=== PATIENT | female | born 1955 | race Caucasian/White ===

== ENCOUNTER → 2024-10-27 13:37 | Outpatient (CLI) | payer MEDICARE, MEDICAID, SELFPAY ==
--- NOTE | 2024-10-27 13:41 | DI.US.S_ITS ---
PROCEDURE: US VENOUS INSUFFICIENCY BILAT INDICATIONS: venous statsis ulcer TECHNIQUE: Real time scanning was performed of the lower extremity venous system, with imaging documentation, as well as Color and pulse Doppler interrogation. COMPARISON: None. FINDINGS: RIGHT LOWER EXTREMITY: The deep veins are normally compressible, and free of intraluminal thrombus. Color and pulse Doppler demonstrate normal intravascular flow. Common femoral vein demonstrates reflux. Greater saphenous vein (GSV): Normally 4 mm or less in diameter, with any reflux less than 0.5 seconds. Saphenofemoral junction (SFJ): 12 mm. Reflux at 2.5 seconds. Proximal GSV: 5 mm. Reflux at 0.5 seconds. Mid GSV: 6 mm. Reflux at 1.9 seconds. Distal GSV: 6 mm. Reflux at 1.9 seconds. Calf GSV: 5 mm, and reflux at 1.9 seconds. Anterior accessory GSV (AAGSV): Anatomic variant not present across anterior thigh. Small saphenous vein (SSV): Posterior calf, draining into popliteal vein. Posterior calf: 4 mm. No reflux. Vein of Giacomini (posterior thigh connection between GSV and SSV): Anatomic variant not seen. LEFT LOWER EXTREMITY: The deep veins are normally compressible, and free of intraluminal thrombus. Color and pulse Doppler demonstrate normal intravascular flow. Reflux weight in the common femoral vein. Greater saphenous vein (GSV): Normally 4 mm or less in diameter, with any reflux less than 0.5 seconds. Saphenofemoral junction (SFJ): 11 mm. Reflux present at 2.3 seconds. Proximal GSV: 8 mm. No reflux. Mid GSV: 3 mm. No reflux. Distal GSV: 4 mm. No reflux. Calf GSV: 4 mm. No reflux. Anterior accessory GSV (AAGSV): Reflux in a proximal accessory vein at 1.1 second, 7 millimeter in diameter. Small saphenous vein (SSV): Posterior calf, draining into popliteal vein. Posterior calf: 3 mm. No reflux. Vein of Giacomini (posterior thigh connection between GSV and SSV): Anatomic variant not seen. IMPRESSION: Reflux of the entire right greater saphenous vein and right common femoral vein. Reflux within the left greater saphenous vein at the saphenofemoral junction, and left common femoral vein. Reflux within a proximal accessory vein. Dictated by: Ramesh Boss M.D. on 10/28/2024 at 10:39 Approved by: Ramesh Boss M.D. on 10/28/2024 at 10:50
== END ==
PROVIDERS: PCP Nurse Practitioner; Referring Provider Physician Assistant; Visit Provider Physician Assistant
DX: I87.2 Venous insufficiency (chronic) (peripheral) (principal); I83.009 Varicose veins of unspecified lower extremity with ulcer of unspecified site; L97.909 Non-pressure chronic ulcer of unspecified part of unspecified lower leg with unspecified severity
CPT/HCPCS: 93970